=== PATIENT | male | born 1990 | race Caucasian/White ===

== ENCOUNTER 2024-06-24 19:27 | Emergency (ER) | payer MEDICAID ==
[~2024-06-24] VITALS: Ht 165.1 cm; Wt 68.0 kg
[2024-06-24 19:30] VITALS: BP_SYST 111; PULSE 69; RESP 16; TEMP 96.4; O2SAT 92
[2024-06-24 19:44] VITALS: BP_SYST 111; PULSE 69; RESP 16; TEMP 96.4; O2SAT 92
== END 2024-06-24 19:44 ==
LOC: SED 19:27
DX: S51.812D Laceration without foreign body of left forearm, subsequent encounter (principal); S31.119D Laceration without foreign body of abdominal wall, unspecified quadrant without penetration into peritoneal cavity, subsequent encounter; X58.XXXD Exposure to other specified factors, subsequent encounter
CPT/HCPCS: 99283